=== PATIENT | female | born 1985 | race Caucasian/White ===

== ENCOUNTER 2018-06-06 19:01 | Emergency (ER) | payer OTHER ==
[2018-06-06 19:17] VITALS: BP 106/64; PULSE 66; TEMP 98.2; BMI 23.4
[2018-06-06] MEDS ORDERED: KETOROLAC TROMETHAMINE 60 MG/2 ML VIAL IM ONE (19:47)
[2018-06-06] MEDS ORDERED: KETOROLAC TROMETHAMINE 60 MG/2 ML VIAL ONE (19:54)
--- NOTE | 2018-06-06 20:04 | PDOC ---
History of Present Illness - General Chief Complaint: Back Pain Stated Complaint: LOWER BACK PAIN Time Seen by Provider: 06/06/18 19:40 History Source: Patient Exam Limitations: Clinical Condition - History of Present Illness Initial Comments: 06/06/18 20:01 Patient with no significant past medical history presenting with complaint of severe left flank pain radiating down the left groin area about one hour ago. Patient also report 1 episode of vomiting. Denies diarrhea or constipation. She denies any urinary symptoms of burning with urination, dysuria, or urinary frequency. Denies any history of up to no issues. Denies fever or chills , bodyaches, headache, malaise or weakness Timing/Duration: 1 hour Severity: severe Past History - Past Medical History Allergies/Adverse Reactions: Allergies Allergy/AdvReac Type Severity Reaction Status Date / Time No Known Allergies Allergy Verified 06/06/18 19:17 Home Medications: Ambulatory Orders Ibuprofen 800 mg PO TID PRN #20 tablet 06/06/18 Tamsulosin HCl [Flomax] 0.4 mg PO DAILY #5 cap.er.24h 06/06/18 COPD: No - Suicide/Smoking/Psychosocial Hx Smoking History: Never smoked Have you smoked in the past 12 months: No Information on smoking cessation initiated: No Hx Alcohol Use: No Drug/Substance Use Hx: No Substance Use Type: None Review of Systems - Review of Systems Able to Perform ROS?: Yes Is the patient limited [place] proficient: No Constitutional: No: Chills, Diaphoresis, Fever, Loss of Appetite, Malaise, Night Sweats, Weakness, Weight Stable, Unintentional Wgt. Loss, Unexplained wgt Loss, Other HEENTM: No: Eye Pain, Blurred Vision, Tearing, Recent change in vision, Double Vision, Cataracts, Ear Pain, Ocular Prothesis, Ear Discharge, Nose Pain, Nose Congestion, Tinnitus, Nose Bleeding, Hearing Loss, Throat Pain, Throat Swelling , Mouth Pain, Dental Problems, Difficulty Swallowing, Mouth Swelling, Other Respiratory: No: Cough, Orthopnea, Shortness of Breath, SOB with Exertion, SOB at Rest, Stridor, Wheezing, Productive cough, Hemoptysis, Other Cardiac (ROS): No: Chest Pain, Edema, Irregular Heart Rate, Lightheadedness, Palpitations, Syncope, Chest Tightness, Other ABD/GI: Yes: See HPI, Nausea, Vomiting (1 episode). No: Abdominal Distended, Constipated, Diarrhea, Rectal Bleeding : No: Burning, Dysuria, Frequency, Pain, Urgency All Other Systems: Reviewed and Negative *Physical Exam - Vital Signs Last Vital Signs Temp Pulse Resp BP Pulse Ox 98.2 F 66 15 106/64 100 06/06/18 19:15 06/06/18 19:15 06/06/18 19:15 06/06/18 19:15 06/06/18 19:15 - Physical Exam Comments: 06/06/18 20:04 GENERAL: Well developed, well nourished. Awake and alert. No acute distress. HEENT: Normocephalic, atraumatic. PERRLA, EOMI. No conjunctival pallor. Sclera are non- icteric. Moist mucous membranes. Oropharynx is clear. NECK: Supple. Full ROM. No JVD. Carotid pulses 2+ and symmetric, without bruits. No thyromegaly. No lymphadenopathy. CARDIOVASCULAR: Regular rate and rhythm. No murmurs, rubs, or gallops. Distal pulses are 2+ and symmetric. PULMONARY: No evidence of respiratory distress. Lungs clear to auscultation bilaterally. No wheezing, rales or rhonchi. ABDOMINAL: Soft. Non-tender. Non-distended. No rebound or guarding. No organomegaly. Normoactive bowel sounds. MUSCULOSKELETAL : moderate tenderness over left flank area and left mid-back. Normal range of motion at all joints. No CVA tenderness. EXTREMITIES: No cyanosis. No clubbing. No edema. No calf tenderness. SKIN: Warm and dry. Normal capillary refill. No rashes. No jaundice. NEUROLOGICAL: Alert, awake, appropriate. Cranial nerves 2-12 intact. No deficits to light touch and temperature in face, upper extremities and lower extremities. No motor deficits in the in face, upper extremities and lower extremities. Normoreflexic in the upper and lower extremities. Normal speech. Toes are down- going bilaterally. Gait is normal without ataxia. PSYCHIATRIC: Cooperative. Good eye contact. Appropriate mood and affect. 06/06/18 20:40 General Appearance: Yes: Nourished, Appropriately Dressed, Severe Distress ED Treatment Course - LABORATORY CBC & Chemistry Diagram: 06/06/18 20:25 06/06/18 20:25 - RADIOLOGY Radiology Studies Ordered: Category Date Time Status ABDOMEN & PELVIS CT W/O CONTR [CT] Stat CT Scan 06/06/18 19:50 Ordered Medical Decision Making - Medical Decision Making 06/06/18 20:42 Patient with no significant past medical history the with complain of severe left flank pain with nausea and vomiting without fever or urinary symptoms. Symptoms likely kidney stones. Toradol 60 mg IM given in left gluteal area for pain. UA and urine culture sent. Labs for CBC also sent. CT of abdominal/ pelvis without contrast ordered to rule out kidney stone. Treat based on imaging and lab results 06/06/18 21:26 Patient pain well controlled now. CT scan of the abdomen no without contrast show one single small stone in the left ureter. No no findings on CT scan. CBC shows no elevated WBCs and patient afebrile. Patient is stable for home discharge on NSAIDs with urology follow-up *DC/Admit/Observation/Transfer Diagnosis at time of Disposition: Nephrolithiasis - Discharge Dispostion Disposition: HOME Condition at time of disposition: Improved Decision to Admit order: No - Prescriptions Prescriptions: Ibuprofen 800 mg PO TID PRN #20 tablet PRN Reason: pain Tamsulosin HCl [Flomax] 0.4 mg PO DAILY #5 cap.er.24h - Referrals Referrals: Erin Rush MD [Staff Physician] - - Patient Instructions Printed Discharge Instructions: Kidney Stones -- Adult, DI for Kidney Stones Additional Instructions: Take medication as prescribed. Follow-up urology as referred Print Language: MOZAMBICAN - Post Discharge Activity Forms/Work/School Notes: Back to Work
[2018-06-06 20:30] LABS: URINE APPEARANCE CLEAR; URINE BILIRUBIN NEGATIVE (<2.0 mg/dL); URINE COLOR YELLOW; URINE GLUCOSE (UA) NEGATIVE (NEGATIVE); URINE KETONE 1+ (NEGATIVE); URINE LEUK ESTERASE TRACE (NEGATIVE); URINE NITRITE NEGATIVE (NEGATIVE); URINE PROTEIN NEGATIVE (NEGATIVE)
[2018-06-06 20:31] LABS: BASO % 0.4 % (0-2.0); EOS % 0.6 % (0-4.5); HEMATOCRIT 36.6 % (32.4-45.2); HEMOGLOBIN 12.6 GM/dL (10.7-15.3); LYMPH % 23.2 % (8-40); MCH 31.2 pg (25.7-33.7); MCHC 34.5 g/dl (32.0-36.0); MEAN CELL VOLUME 90.4 fl (80-96); MEAN PLT VOLUME 9.8 fl (7.5-11.1); NEUT % 69.8 % (42.8-82.8); PLATELET COUNT 180 K/MM3 (134-434); RBC 4.05 M/mm3 (3.60-5.2); WHITE BLOOD COUNT 4.6 K/mm3 (4.0-10.0)
[2018-06-06 20:33] LABS: HCG,QUALITATIVE URINE NEGATIVE
[2018-06-06 20:40] LABS: EPI CELLS FEW /HPF (FEW); URINE BACTERIA RARE /hpf (NONE SEEN); URINE HYALINE CAST 2 /lpf; URINE MUCUS FEW
[2018-06-06 21:19] LABS: ALBUMIN 3.5 g/dl (3.4-5.0); ANION GAP 9 (8-16); BILIRUBIN,TOTAL 0.7 mg/dL (0.2-1.0); BLOOD UREA NITROGEN 10 mg/dL (7-18); CALCIUM 8.5 mg/dL (8.5-10.1); CHLORIDE 107 mmol/L (98-107); CO2 24 mmol/L (21-32); CREATININE 0.7 mg/dL (0.55-1.02); GLUCOSE,RANDOM 105 mg/dL (74-106); POTASSIUM 3.6 mmol/L (3.5-5.1); SGOT/AST 16 U/L (15-37); SGPT/ALT 26 U/L (12-78); SODIUM 140 mmol/L (136-145); TOT PROT 6.6 g/dl (6.4-8.2)
[2018-06-06 21:20] LABS: ALK PHOS 38 U/L (45-117)
== END 2018-06-06 21:35 | disposition home or self-care (01) ==
LOC: JERFT 19:01
PROC: 3E0233Z Introduction of Anti-inflammatory into Muscle, Percutaneous Approach (ICD-10-PCS; principal; 2018-06-06)
DX: N20.0 Calculus of kidney (principal)
CPT/HCPCS: 36415; 74176-TC; 80053; 81003; 81015; 84703; 85025; 96372; 99281-25

== ENCOUNTER 2018-08-10 11:49 | Emergency (ER) | payer OTHER ==
[2018-08-10 12:50] VITALS: BP 104/63; PULSE 82; TEMP 98.6; BMI 21.9
--- NOTE | 2018-08-10 14:12 | PDOC ---
History of Present Illness - General Chief Complaint: Injury Stated Complaint: FOOT PAIN Time Seen by Provider: 08/10/18 13:21 - History of Present Illness Initial Comments: 08/10/18 14:07 33-year-old female presents for evaluation of left ankle pain after slip and fall at home. She describes an inversion-type injury. She points to the lateral aspect of the left ankle as the area of her discomfort. Past History - Past Medical History Allergies/Adverse Reactions: Allergies Allergy/AdvReac Type Severity Reaction Status Date / Time No Known Allergies Allergy Verified 08/10/18 12:47 Home Medications: Ambulatory Orders NK [No Known Home Medication] 08/10/18 COPD: No - Suicide/Smoking/Psychosocial Hx Smoking History: Never smoked Have you smoked in the past 12 months: No Hx Alcohol Use: No Drug/Substance Use Hx: No Substance Use Type: None Review of Systems - Review of Systems Musculoskeletal: Yes: See HPI, Joint Pain All Other Systems: Reviewed and Negative *Physical Exam - Vital Signs Last Vital Signs Temp Pulse Resp BP Pulse Ox 98.6 F 82 16 104/63 99 08/10/18 12:47 08/10/18 12:47 08/10/18 12:47 08/10/18 12:47 08/10/18 12:47 - Physical Exam Comments: Left ankle skin color and temperature are normal. There is no tenderness about the knee proximal fibula or along its distal course. No tenderness about the medial lateral malleolus. No tenderness about the base of the fifth metatarsal or navicular. Mild discomfort over the ATFL. He has no evidence of instability or gross sensorimotor deficits. She is neurovascularly intact. 08/10/18 14:07 ED Treatment Course - RADIOLOGY Radiology Studies Ordered: Category Date Time Status ANKLE-LEFT [RAD] Stat Radiology 08/10/18 13:25 Taken Medical Decision Making - Medical Decision Making 08/10/18 14:07 Left ankle radiographs are normal *DC/Admit/Observation/Transfer Diagnosis at time of Disposition: Ankle sprain - Discharge Dispostion Disposition: HOME Condition at time of disposition: Stable Decision to Admit order: No - Referrals Referrals: Francisco Paul MD [Staff Physician] - - Patient Instructions Printed Discharge Instructions: Ankle Sprain, DI for Ankle Sprain Additional Instructions: l puede soportar el peso segn lo tolera con el uso de muletas. Katherine un seguimiento con ciruga ortopdica en 1-2 souza para devante evaluacin adicional y opciones de tratamiento. Regrese a la ashish de emergencias si los sntomas empeoran o no se resuelven. Print Language: [place] - Post Discharge Activity
== END 2018-08-10 14:15 | disposition home or self-care (01) ==
LOC: JERFT 11:49
DX: S93.402A Sprain of unspecified ligament of left ankle, initial encounter (principal); W01.0XXA Fall on same level from slipping, tripping and stumbling without subsequent striking against object, initial encounter; Y93.89 Activity, other specified; Y92.038 Other place in apartment as the place of occurrence of the external cause; Y99.8 Other external cause status
CPT/HCPCS: 73610-TC-LT-FY; 99281-25